=== PATIENT | female | born 1980 | race Caucasian/White ===

== ENCOUNTER 2017-10-06 12:14 | Inpatient (IN) | payer OTHER ==
[2017-10-06 14:53] VITALS: BMI 31.9
--- NOTE | 2017-10-06 15:26 | HP ---
CIWA Score - CIWA Score Nausea/Vomitin Muscle Tremors: 3 Anxiety: 3 Agitation: 3 Paroxysmal Sweats: 2 Orientation: 0-Oriented Tacttile Disturbances: 2-Mild Itch/Numbness/Burn Auditory Disturbances: 2-Mild Harshness/Frighten Visual Disturbances: 2-Mild Sensitivity Headache: 2-Mild CIWA-Ar Total Score: 22 Admission ROS BHS - HPI Chief Complaint: i need help to stop using xanax,klonopin,heroin,seeking detox,withdrawal symptom ,mmtp 80 mgs/day,last medicated today ptsd with depression no significant period of sobriety nicotine dependence Allergies/Adverse Reactions: Allergies Allergy/AdvReac Type Severity Reaction Status Date / Time No Known Allergies Allergy Verified 10/06/17 15:13 History of Present Illness: this 37 years old female with xanax,klonopin dependence,heroin dependence, seeking detox,mmtp 80 mgs/day,last medicated today seeking detox as mentioned - Ebola screening Have you traveled outside of the country in the last 21 days: No Have you had contact with anyone from an Ebola affected area: No Have you been sick,other than usual withdrawal symptoms: No Do you have a fever: No - Review of Systems Constitutional: Loss of Appetite, Malaise, Night Sweats, Changes in sleep, Weakness EENT: reports: Tearing, Nose Congestion Respiratory: reports: No Symptoms reported Cardiac: reports: No Symptoms Reported GI: reports: Diarrhea, Nausea, Vomiting, Abdominal cramping : reports: No Symptoms Reported Musculoskeletal: reports: Back Pain, Joint Pain, Muscle Pain Neuro: reports: Headache, Tremors Endocrine: reports: No Symptoms Reported Hematology: reports: No Symptoms Reported Psychiatric: reports: No Sypmtoms Reported, Judgement Intact, Mood/Affect Appropiate, Anxious, Depressed Other Systems: Reviewed and Negative Patient History - Patient Medical History Hx Anemia: No Hx Asthma: No Hx Chronic Obstructive Pulmonary Disease (COPD): No Hx Cancer: No Hx Cardiac Disorders: No Hx Congestive Heart Failure: No Hx Hypertension: No Hx Hypercholesterolemia: No Hx Pacemaker: No HX Cerebrovascular Accident: No Hx Seizures: No Hx Dementia: No Hx Diabetes: No Hx Gastrointestinal Disorders: No Hx Liver Disease: No Hx Genitourinary Disorders: No Hx Sexually Transmitted Disorders: No Hx Renal Disease (ESRD): No Hx Thyroid Disease: No Hx Human Immunodeficiency Virus (HIV): No (last 2017 negative) Hx Hepatitis C: No Hx Depression: Yes (anxiety and depression) Hx Suicide Attempt: Yes (overdose) Hx Bipolar Disorder: No Hx Schizophrenia: No Other Medical History: no suicidal,no homicidal - Patient Surgical History Past Surgical History: No Hx Neurologic Surgery: No Hx Cataract Extraction: No Hx Cardiac Surgery: No Hx Lung Surgery: No Hx Breast Surgery: No Hx Breast Biopsy: No Hx Abdominal Surgery: No Hx Appendectomy: No Hx Cholecystectomy: No Hx Genitourinary Surgery: No Hx Section: No Hx Orthopedic Surgery: No Hx Hysterectomy: No Anesthesia Reaction: No - PPD History Previous Implant?: Yes Documented Results: Negative w/o proof Implanted On Prior R Admission?: Yes Date: 02/12/14 Results: 0 mm PPD to be Administered?: Yes - Reproductive History Patient is a Female of Child Bearing Age (11 -55 yrs old): Yes Last Menstrual Period: 07/30/17 Patient : No - Smoking Cessation Smoking history: Smoker current status UNK Have you smoked in the past 12 months: No Aproximately how many cigarettes per day: 0 Cigars Per Day: 0 Hx Chewing Tobacco Use: No Initiated information on smoking cessation: Yes 'Breaking Loose' booklet given: 10/06/17 - Substance & Tx. History Hx Alcohol Use: No Hx Substance Use: Yes Substance Use Type: Cocaine, Heroin, Tranquilizers - Substances Abused Alprazolam (Xanax) Route: Oral Frequency: Daily Amount used: 4-6MG Age of first use: 18 Date of Last Use: 10/04/17 Heroin Route: Inhalation Frequency: Daily Amount used: 20 BAGS Age of first use: 32 Date of Last Use: 10/06/17 Cocaine Route: Inhalation Frequency: 1-3 times last 30 days Amount used: $20 Age of first use: 18 Date of Last Use: 10/03/17 Family Disease History - Family Disease History Family Disease History: Other: Father (dsa), Mother (dsa) Admission Physical Exam BHS - Vital Signs Vital Signs: Vital Signs - 24 hr 10/06/17 14:51 Temperature 96 F L Pulse Rate 94 H Respiratory 20 Rate Blood Pressure 123/81 - Physical General Appearance: Yes: Moderate Distress, Tremorous, Irritable, Sweating, Anxious HEENTM: Yes: Normal ENT Inspection, EDU, Pharynx Normal Respiratory: Yes: Lungs Clear, Normal Breath Sounds, No Respiratory Distress Neck: Yes: Within Normal Limits, Supple, Trachea in good position Breast: Yes: Breast Exam Deferred Cardiology: Yes: Within Normal Limits, Regular Rhythm, Regular Rate, S1, S2 Abdominal: Yes: Within Normal Limits, Normal Bowel Sounds, Non Tender, Soft Genitourinary: Yes: Within Normal Limits Back: Yes: Muscle Spasm Musculoskeletal: Yes: full range of Motion, Back pain, Muscle Pain Extremities: Yes: Tremors Neurological: Yes: Within Normal Limits, central supply nurse II-XII NML intact, Alert, Motor Strength 5/5 Integumentary: Yes: Dry, Other (abrasion of upper back) Lymphatic: Yes: Within Normal Limits - Diagnostic (1) Uncomplicated sedative, hypnotic or anxiolytic withdrawal Current Visit: Yes Status: Acute (2) Cocaine dependence, uncomplicated Current Visit: No Status: Acute (3) Nicotine dependence Current Visit: No Status: Acute (4) Opioid dependence Current Visit: No Status: Acute (5) Insomnia secondary to depression with anxiety Current Visit: Yes Status: Acute (6) Methadone maintenance therapy patient Current Visit: Yes Status: Acute Cleared for Admission [facility] - Detox or Rehab [facility] Level of Care: Medically Managed Detox Regimen/Protocol: Valium [facility] Breath Alcohol Content Breath Alcohol Content: 0 Urine Pregancy Test - Result Urine Test Results: Negative- NO Line Present Urine Drug Screen - Results Drug Screen Negative: No Urine Drug Screen Results: OPI-Opiates, BZO-Benzodiazepines, MTD-Methadone, OXY- Oxycodone
[2017-10-06] MEDS ORDERED: ACETAMINOPHEN 325 MG TABLET (FP) PO PRN (15:43)
[2017-10-06] MEDS ORDERED: guaiFENesin/D-METHORPHAN HB 10 ML UNIT-DOSE CUPS PO PRN (15:43)
[2017-10-06] MEDS ORDERED: MAGNESIUM HYDROX 2400MG/30ML ORAL SUSPENSION 30 ML CUP PO PRN (15:43)
[2017-10-06] MEDS ORDERED: hydrOXYzine PAMOATE 50 MG CAPSULE (FP) PO PRN (15:43)
[2017-10-06] MEDS ORDERED: MAG HYDROX/AL HYDROX/SIMETH 30 ML UNIT-DOSE CUP PO PRN (15:43)
[2017-10-06] MEDS ORDERED: P-EPHED 60MG/TRIPROLIDI 2.5MG TABLET PO PRN (15:43)
[2017-10-06] MEDS ORDERED: MAGNESIUM CITRATE 300 ML BOTTLE PO PRN (15:43)
[2017-10-06] MEDS ORDERED: MENTHOL/PHENOL 1 EACH UD MM PRN (15:43)
[2017-10-06] MEDS ORDERED: LOPERAMIDE HCL 2 MG CAPSULE PO PRN (15:43)
[2017-10-06] MEDS ORDERED: diazePAM 5 MG TABLET PO ONE (16:45)
[2017-10-06] MEDS: diazePAM 5 MG TABLET PO SCH (22:34)
[2017-10-06] MEDS: THIAMINE HCL 100 MG TABLET (FP) PO SCH (22:34)
[2017-10-06 23:59] LABS: URINE APPEARANCE SLCLOUDY; URINE BILIRUBIN NEGATIVE (NEGATIVE); URINE BLOOD NEGATIVE (NEGATIVE); URINE COLOR LTYELLOW; URINE GLUCOSE (UA) NEGATIVE (NEGATIVE); URINE KETONE NEGATIVE (NEGATIVE); URINE NITRITE NEGATIVE (NEGATIVE); URINE PROTEIN NEGATIVE (NEGATIVE); URINE UROBILINOGEN NEGATIVE mg/dL (0.2-1.0)
[2017-10-07] LABS: URINE LEUK ESTERASE 3+ (NEGATIVE)
[2017-10-07 00:01] LABS: EPI CELLS FEW /HPF (FEW); URINE BACTERIA FEW /hpf (NONE SEEN); URINE MUCUS RARE; YEAST FEW
[2017-10-07] MEDS: diazePAM 5 MG TABLET PO SCH ×3 (05:28→22:14)
--- NOTE | 2017-10-07 09:12 | PN ---
S CIWA - CIWA Score Nausea/Vomitin-Mild Nausea/No Vomiting Muscle Tremors: 5 Anxiety: 4-Mod. Anxious/Guarded Agitation: 4-Moderately Restless Paroxysmal Sweats: 1-Minimal Palms Moist Orientation: 0-Oriented Tacttile Disturbances: 1-Very Mild Itch/Numbness Auditory Disturbances: 0-None Visual Disturbances: 0-None Headache: 2-Mild CIWA-Ar Total Score: 18 BHS Progress Note (SOAP) Subjective: SWEAT TREMOR ANXIETY RESTLESSNESS IRRITABLE GI DISTRESS Objective: 10/07/17 09:09 Vital Signs Temperature 98.2 F 10/07/17 06:29 Pulse Rate 67 10/07/17 06:29 Respiratory Rate 18 10/07/17 06:29 Blood Pressure 115/66 10/07/17 06:29 O2 Sat by Pulse Oximetry (%) Laboratory Last Values Urine Color Ltyellow 10/06/17 23:40 Urine Appearance Slcloudy 10/06/17 23:40 Urine pH 5.0 (5.0-8.0) 10/06/17 23:40 Ur Specific [place] 1.012 (1.001-1.035) 10/06/17 23:40 Urine Protein Negative (NEGATIVE) 10/06/17 23:40 Urine Glucose (UA) Negative (NEGATIVE) 10/06/17 23:40 Urine Ketones Negative (NEGATIVE) 10/06/17 23:40 Urine Blood Negative (NEGATIVE) 10/06/17 23:40 Urine Nitrite Negative (NEGATIVE) 10/06/17 23:40 Urine Bilirubin Negative (NEGATIVE) 10/06/17 23:40 Urine Urobilinogen Negative mg/dL (0.2-1.0) 10/06/17 23:40 Ur Leukocyte Esterase 3+ (NEGATIVE) H 10/06/17 23:40 Urine WBC (Auto) 5 /hpf (3-5) 10/06/17 23:40 Urine RBC (Auto) 2 /hpf (0-3) 10/06/17 23:40 Ur Epithelial Cells Few /HPF (FEW) 10/06/17 23:40 Urine Bacteria Few /hpf (NONE SEEN) 10/06/17 23:40 Urine Mucus Rare 10/06/17 23:40 Urine Yeast Few 10/06/17 23:40 LAB NOTED Assessment: 10/07/17 09:45 WITHDRAWAL SX MUSCLE CRAMP Plan: CONTINUE DETOX ROBAXIN 500 MG PO QID
[2017-10-07 09:52] LABS: HEMATOCRIT 37.9 % (32.4-45.2); HEMOGLOBIN 12.4 GM/dL (10.7-15.3); MCH 28.3 pg (25.7-33.7); MCHC 32.6 g/dl (32.0-36.0); MEAN CELL VOLUME 86.8 fl (80-96); MEAN PLT VOLUME 8.3 fl (7.5-11.1); PLATELET COUNT 288 K/MM3 (134-434); RBC 4.37 M/mm3 (3.60-5.2); RDW 14.7 % (11.6-15.6); WHITE BLOOD COUNT 7.3 K/mm3 (4.0-10.0)
[2017-10-07 09:54] LABS: CHLORIDE 103 mmol/L (98-107); POTASSIUM 3.7 mmol/L (3.5-5.1); SODIUM 138 mmol/L (136-145)
[2017-10-07] MEDS ORDERED: METHADONE HCL 40 MG DISPERSABLE TABLET PO ONE (10:00)
[2017-10-07 10:16] LABS: ALBUMIN 3.5 g/dl (3.4-5.0); ALK PHOS 58 U/L (45-117); ANION GAP 6 (8-16); BILIRUBIN,TOTAL 0.6 mg/dL (0.2-1.0); BLOOD UREA NITROGEN 11 mg/dL (7-18); CALCIUM 8.6 mg/dL (8.5-10.1); CO2 29 mmol/L (21-32); CREATININE 0.8 mg/dL (0.55-1.02); GLUCOSE,RANDOM 84 mg/dL (74-106); SGOT/AST 9 U/L (15-37); SGPT/ALT 14 U/L (12-78); TOT PROT 6.6 g/dl (6.4-8.2)
[2017-10-07] MEDS: PRENATAL VITAMINS W/ FOLIC ACID TABLET (FP) PO SCH (10:37)
[2017-10-07] MEDS: diazePAM 5 MG TABLET PO PRN ×2 (10:37→17:30)
[2017-10-07] MEDS: METHOCARBAMOL 500 MG TABLET PO SCH ×4 (10:39→22:14)
[2017-10-07] MEDS ORDERED: FLU VACCINE QUAD 60 MCG/0.5 ML (MDV 17-18) IM ONE (12:00)
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
[2017-10-07] MEDS: NICOTINE POLACRILEX 2 MG GUM BC PRN (13:24)
--- NOTE | 2017-10-07 13:34 | EKG ---
Test Reason : Blood Pressure : / mmHG Vent. Rate : 069 BPM Atrial Rate : 069 BPM P-R Int : 140 ms QRS Dur : 082 ms QT Int : 406 ms P-R-T Axes : 029 045 027 degrees QTc Int : 435 ms NORMAL SINUS RHYTHM WITH SINUS ARRHYTHMIA NORMAL ECG NO PREVIOUS ECGS AVAILABLE Confirmed by MD Prateek, ([id number]) on 10/07/2017 1:34:32 PM Referred By: Confirmed By:Daniel Chandra MD
--- NOTE | 2017-10-07 15:09 | EKG ---
Test Reason : Blood Pressure : / mmHG Vent. Rate : 062 BPM Atrial Rate : 062 BPM P-R Int : 128 ms QRS Dur : 084 ms QT Int : 396 ms P-R-T Axes : 004 057 004 degrees QTc Int : 401 ms NORMAL SINUS RHYTHM NONSPECIFIC T WAVE ABNORMALITY ABNORMAL ECG WHEN COMPARED WITH ECG OF 06-OCT-2017 20:02, NONSPECIFIC T WAVE ABNORMALITY NOW EVIDENT IN ANTEROLATERAL LEADS Confirmed by MD Prateek, ([id number]) on 10/07/2017 3:08:45 PM Referred By: Confirmed By:Daniel Chandra MD
[2017-10-07] MEDS: THIAMINE HCL 100 MG TABLET (FP) PO SCH (22:14)
[2017-10-07] MEDS: ZOLPIDEM TARTRATE 10 MG TABLET (PARK CARE ONLY) PO PRN (22:14)
[2017-10-08] MEDS: IBUPROFEN 400 MG TABLET (FP) PO PRN ×3 (01:53→23:37)
[2017-10-08] MEDS: diazePAM 5 MG TABLET PO PRN ×3 (01:53→17:41)
[2017-10-08] MEDS: METHADONE HCL 40 MG DISPERSABLE TABLET PO SCH (05:13)
[2017-10-08] MEDS ORDERED: METHADONE HCL 10 MG TABLET PO SCH (06:00)
--- NOTE | 2017-10-08 09:26 | PN ---
S CIWA - CIWA Score Nausea/Vomitin-No Nausea/No Vomiting Muscle Tremors: 4-Moderate,w/Arms Extend Anxiety: 4-Mod. Anxious/Guarded Agitation: 4-Moderately Restless Paroxysmal Sweats: 1-Minimal Palms Moist Orientation: 0-Oriented Tacttile Disturbances: 1-Very Mild Itch/Numbness Auditory Disturbances: 0-None Visual Disturbances: 0-None Headache: 1-Very Mild CIWA-Ar Total Score: 15 BHS Progress Note (SOAP) Subjective: SWEAT TREMOR ANXIETY GI UPSET HEADACHE Objective: 10/08/17 09:25 Vital Signs Temperature 98.1 F 10/08/17 06:30 Pulse Rate 54 L 10/08/17 06:30 Respiratory Rate 18 10/08/17 06:30 Blood Pressure 125/60 10/08/17 06:30 O2 Sat by Pulse Oximetry (%) Laboratory Last Values WBC 7.3 K/mm3 (4.0-10.0) D 10/07/17 07:30 RBC 4.37 M/mm3 (3.60-5.2) 10/07/17 07:30 Hgb 12.4 GM/dL (10.7-15.3) 10/07/17 07:30 Hct 37.9 % (32.4-45.2) 10/07/17 07:30 MCV 86.8 fl (80-96) 10/07/17 07:30 MCH 28.3 pg (25.7-33.7) 10/07/17 07:30 MCHC 32.6 g/dl (32.0-36.0) 10/07/17 07:30 RDW 14.7 % (11.6-15.6) D 10/07/17 07:30 Plt Count 288 K/MM3 (134-434) 10/07/17 07:30 MPV 8.3 fl (7.5-11.1) 10/07/17 07:30 Sodium 138 mmol/L (136-145) 10/07/17 07:30 Potassium 3.7 mmol/L (3.5-5.1) 10/07/17 07:30 Chloride 103 mmol/L (98-107) 10/07/17 07:30 Carbon Dioxide 29 mmol/L (21-32) 10/07/17 07:30 Anion Gap 6 (8-16) L 10/07/17 07:30 BUN 11 mg/dL (7-18) 10/07/17 07:30 Creatinine 0.8 mg/dL (0.55-1.02) 10/07/17 07:30 Creat Clearance w eGFR > 60 (>60) 10/07/17 07:30 Random Glucose 84 mg/dL (74-106) 10/07/17 07:30 Calcium 8.6 mg/dL (8.5-10.1) 10/07/17 07:30 Total Bilirubin 0.6 mg/dL (0.2-1.0) D 10/07/17 07:30 AST 9 U/L (15-37) L 10/07/17 07:30 ALT 14 U/L (12-78) 10/07/17 07:30 Alkaline Phosphatase 58 U/L (45-117) 10/07/17 07:30 Total Protein 6.6 g/dl (6.4-8.2) 10/07/17 07:30 Albumin 3.5 g/dl (3.4-5.0) 10/07/17 07:30 Urine Color Ltyellow 10/06/17 23:40 Urine Appearance Slcloudy 10/06/17 23:40 Urine pH 5.0 (5.0-8.0) 10/06/17 23:40 Ur Specific [place] 1.012 (1.001-1.035) 10/06/17 23:40 Urine Protein Negative (NEGATIVE) 10/06/17 23:40 Urine Glucose (UA) Negative (NEGATIVE) 10/06/17 23:40 Urine Ketones Negative (NEGATIVE) 10/06/17 23:40 Urine Blood Negative (NEGATIVE) 10/06/17 23:40 Urine Nitrite Negative (NEGATIVE) 10/06/17 23:40 Urine Bilirubin Negative (NEGATIVE) 10/06/17 23:40 Urine Urobilinogen Negative mg/dL (0.2-1.0) 10/06/17 23:40 Ur Leukocyte Esterase 3+ (NEGATIVE) H 10/06/17 23:40 Urine WBC (Auto) 5 /hpf (3-5) 10/06/17 23:40 Urine RBC (Auto) 2 /hpf (0-3) 10/06/17 23:40 Ur Epithelial Cells Few /HPF (FEW) 10/06/17 23:40 Urine Bacteria Few /hpf (NONE SEEN) 10/06/17 23:40 Urine Mucus Rare 10/06/17 23:40 Urine Yeast Few 10/06/17 23:40 RPR Titer Nonreactive (NONREACTIVE) 10/07/17 07:30 LAB NOTED Assessment: 10/08/17 09:25 WITHDRAWAL SX Plan: CONTINUE DETOX
[2017-10-08] MEDS: diazePAM 5 MG TABLET PO SCH ×2 (10:18→22:21)
[2017-10-08] MEDS: METHOCARBAMOL 500 MG TABLET PO SCH ×4 (10:18→22:21)
[2017-10-08] MEDS: PRENATAL VITAMINS W/ FOLIC ACID TABLET (FP) PO SCH (10:18)
[2017-10-08] MEDS: NICOTINE POLACRILEX 2 MG GUM BC PRN (10:18)
[2017-10-08] MEDS: LIDOCAINE VISCOUS 2% ORAL/TOP 20 ML UNIT-DOSE CUP MM PRN ×2 (13:09→23:36)
[2017-10-08] MEDS ORDERED: SENNOSIDES 8.6MG TABLET (FP) PO SCH (22:00)
[2017-10-08] MEDS: THIAMINE HCL 100 MG TABLET (FP) PO SCH (22:20)
[2017-10-08] MEDS: ZOLPIDEM TARTRATE 10 MG TABLET (PARK CARE ONLY) PO PRN (22:20)
[2017-10-09] MEDS: METHADONE HCL 40 MG DISPERSABLE TABLET PO SCH (05:31)
[2017-10-09] MEDS: diazePAM 5 MG TABLET PO PRN (07:21)
[2017-10-09] MEDS: IBUPROFEN 400 MG TABLET (FP) PO PRN (07:24)
[2017-10-09 10:01] VITALS: BP 117/70; PULSE 82; TEMP 97.3
[2017-10-09] MEDS: METHOCARBAMOL 500 MG TABLET PO SCH (10:31)
[2017-10-09] MEDS: PRENATAL VITAMINS W/ FOLIC ACID TABLET (FP) PO SCH (10:31)
[2017-10-09] MEDS: diazePAM 5 MG TABLET PO SCH (10:31)
--- NOTE | 2017-10-09 10:51 | PN ---
[facility] Progress Note (SOAP) Subjective: alert oriented x 3 no acute distress calm tolerates food and fluid well reports step on glass few weeks ago, right heel discomfort while walking patient is unable to locate the discomfort area on right heel Objective: 10/09/17 10:49 Vital Signs Temperature 97.3 F L 10/09/17 10:00 Pulse Rate 82 10/09/17 10:00 Respiratory Rate 18 10/09/17 10:00 Blood Pressure 117/70 10/09/17 10:00 O2 Sat by Pulse Oximetry (%) Laboratory Last Values WBC 7.3 K/mm3 (4.0-10.0) D 10/07/17 07:30 RBC 4.37 M/mm3 (3.60-5.2) 10/07/17 07:30 Hgb 12.4 GM/dL (10.7-15.3) 10/07/17 07:30 Hct 37.9 % (32.4-45.2) 10/07/17 07:30 MCV 86.8 fl (80-96) 10/07/17 07:30 MCH 28.3 pg (25.7-33.7) 10/07/17 07:30 MCHC 32.6 g/dl (32.0-36.0) 10/07/17 07:30 RDW 14.7 % (11.6-15.6) D 10/07/17 07:30 Plt Count 288 K/MM3 (134-434) 10/07/17 07:30 MPV 8.3 fl (7.5-11.1) 10/07/17 07:30 Sodium 138 mmol/L (136-145) 10/07/17 07:30 Potassium 3.7 mmol/L (3.5-5.1) 10/07/17 07:30 Chloride 103 mmol/L (98-107) 10/07/17 07:30 Carbon Dioxide 29 mmol/L (21-32) 10/07/17 07:30 Anion Gap 6 (8-16) L 10/07/17 07:30 BUN 11 mg/dL (7-18) 10/07/17 07:30 Creatinine 0.8 mg/dL (0.55-1.02) 10/07/17 07:30 Creat Clearance w eGFR > 60 (>60) 10/07/17 07:30 Random Glucose 84 mg/dL (74-106) 10/07/17 07:30 Calcium 8.6 mg/dL (8.5-10.1) 10/07/17 07:30 Total Bilirubin 0.6 mg/dL (0.2-1.0) D 10/07/17 07:30 AST 9 U/L (15-37) L 10/07/17 07:30 ALT 14 U/L (12-78) 10/07/17 07:30 Alkaline Phosphatase 58 U/L (45-117) 10/07/17 07:30 Total Protein 6.6 g/dl (6.4-8.2) 10/07/17 07:30 Albumin 3.5 g/dl (3.4-5.0) 10/07/17 07:30 Urine Color Ltyellow 10/06/17 23:40 Urine Appearance Slcloudy 10/06/17 23:40 Urine pH 5.0 (5.0-8.0) 10/06/17 23:40 Ur Specific [place] 1.012 (1.001-1.035) 10/06/17 23:40 Urine Protein Negative (NEGATIVE) 10/06/17 23:40 Urine Glucose (UA) Negative (NEGATIVE) 10/06/17 23:40 Urine Ketones Negative (NEGATIVE) 10/06/17 23:40 Urine Blood Negative (NEGATIVE) 10/06/17 23:40 Urine Nitrite Negative (NEGATIVE) 10/06/17 23:40 Urine Bilirubin Negative (NEGATIVE) 10/06/17 23:40 Urine Urobilinogen Negative mg/dL (0.2-1.0) 10/06/17 23:40 Ur Leukocyte Esterase 3+ (NEGATIVE) H 10/06/17 23:40 Urine WBC (Auto) 5 /hpf (3-5) 10/06/17 23:40 Urine RBC (Auto) 2 /hpf (0-3) 10/06/17 23:40 Ur Epithelial Cells Few /HPF (FEW) 10/06/17 23:40 Urine Bacteria Few /hpf (NONE SEEN) 10/06/17 23:40 Urine Mucus Rare 10/06/17 23:40 Urine Yeast Few 10/06/17 23:40 RPR Titer Nonreactive (NONREACTIVE) 10/07/17 07:30 lab noted skin intact warm to touch none tender on palpation ankle full range of motion Assessment: 10/09/17 10:50 mild withdrawal sx Plan: medically supervised detox patient stated that she is not taking medication at home negative finding on right heel "step on glass"
--- NOTE | 2017-10-09 11:44 | DS ---
[facility] Detox Discharge Summary Admission Date: 10/06/17 Discharge Date: 10/09/17 - History Present History: Alcohol Dependence Additional Comments: patient reports that she is ready to go to rehab today, - Physical Exam Results Vital Signs: Vital Signs Temperature 97.3 F L 10/09/17 10:00 Pulse Rate 82 10/09/17 10:00 Respiratory Rate 18 10/09/17 10:00 Blood Pressure 117/70 10/09/17 10:00 O2 Sat by Pulse Oximetry (%) Pertinent Admission Physical Exam Findings: withdrawal sx Laboratory Last Values WBC 7.3 K/mm3 (4.0-10.0) D 10/07/17 07:30 RBC 4.37 M/mm3 (3.60-5.2) 10/07/17 07:30 Hgb 12.4 GM/dL (10.7-15.3) 10/07/17 07:30 Hct 37.9 % (32.4-45.2) 10/07/17 07:30 MCV 86.8 fl (80-96) 10/07/17 07:30 MCH 28.3 pg (25.7-33.7) 10/07/17 07:30 MCHC 32.6 g/dl (32.0-36.0) 10/07/17 07:30 RDW 14.7 % (11.6-15.6) D 10/07/17 07:30 Plt Count 288 K/MM3 (134-434) 10/07/17 07:30 MPV 8.3 fl (7.5-11.1) 10/07/17 07:30 Sodium 138 mmol/L (136-145) 10/07/17 07:30 Potassium 3.7 mmol/L (3.5-5.1) 10/07/17 07:30 Chloride 103 mmol/L (98-107) 10/07/17 07:30 Carbon Dioxide 29 mmol/L (21-32) 10/07/17 07:30 Anion Gap 6 (8-16) L 10/07/17 07:30 BUN 11 mg/dL (7-18) 10/07/17 07:30 Creatinine 0.8 mg/dL (0.55-1.02) 10/07/17 07:30 Creat Clearance w eGFR > 60 (>60) 10/07/17 07:30 Random Glucose 84 mg/dL (74-106) 10/07/17 07:30 Calcium 8.6 mg/dL (8.5-10.1) 10/07/17 07:30 Total Bilirubin 0.6 mg/dL (0.2-1.0) D 10/07/17 07:30 AST 9 U/L (15-37) L 10/07/17 07:30 ALT 14 U/L (12-78) 10/07/17 07:30 Alkaline Phosphatase 58 U/L (45-117) 10/07/17 07:30 Total Protein 6.6 g/dl (6.4-8.2) 10/07/17 07:30 Albumin 3.5 g/dl (3.4-5.0) 10/07/17 07:30 Urine Color Ltyellow 10/06/17 23:40 Urine Appearance Slcloudy 10/06/17 23:40 Urine pH 5.0 (5.0-8.0) 10/06/17 23:40 Ur Specific [place] 1.012 (1.001-1.035) 10/06/17 23:40 Urine Protein Negative (NEGATIVE) 10/06/17 23:40 Urine Glucose (UA) Negative (NEGATIVE) 10/06/17 23:40 Urine Ketones Negative (NEGATIVE) 10/06/17 23:40 Urine Blood Negative (NEGATIVE) 10/06/17 23:40 Urine Nitrite Negative (NEGATIVE) 10/06/17 23:40 Urine Bilirubin Negative (NEGATIVE) 10/06/17 23:40 Urine Urobilinogen Negative mg/dL (0.2-1.0) 10/06/17 23:40 Ur Leukocyte Esterase 3+ (NEGATIVE) H 10/06/17 23:40 Urine WBC (Auto) 5 /hpf (3-5) 10/06/17 23:40 Urine RBC (Auto) 2 /hpf (0-3) 10/06/17 23:40 Ur Epithelial Cells Few /HPF (FEW) 10/06/17 23:40 Urine Bacteria Few /hpf (NONE SEEN) 10/06/17 23:40 Urine Mucus Rare 10/06/17 23:40 Urine Yeast Few 10/06/17 23:40 RPR Titer Nonreactive (NONREACTIVE) 10/07/17 07:30 lab noted - Treatment Hospital Course: Detox Protocol Followed, Detoxed Safely, Responded well, Discharged Condition Good, Rehab Referral Accepted Patient has Accepted [facility] - Medication Discharge Medications: Ambulatory Orders Methadone [Dolophine -] 80 mg PO DAILY 10/09/17 - Diagnosis (1) Methadone maintenance therapy patient Current Visit: Yes Status: Chronic (2) Alcohol dependence with uncomplicated withdrawal Current Visit: Yes Status: Acute - AMA Did Patient Leave Against Medical Advice: No
[2017-10-10] MEDS ORDERED: diazePAM 5 MG TABLET PO SCH (10:00)
[2017-10-10] MEDS ORDERED: METHADONE HCL 40 MG DISPERSABLE TABLET PO SCH (10:00)
== END 2017-10-09 11:55 | disposition other institution (70) | DRG 773 ==
LOC: YASAS 12:14 → Y6N 16:19
PROVIDERS: ADMIT Internal Medicine; ATTEND Internal Medicine
PROC: HZ2ZZZZ Detoxification Services for Substance Abuse Treatment (ICD-10-PCS; principal; 2017-10-06)
DX: F11.20 Opioid dependence, uncomplicated (principal); F14.20 Cocaine dependence, uncomplicated; F17.210 Nicotine dependence, cigarettes, uncomplicated; F19.282 Other psychoactive substance dependence with psychoactive substance-induced sleep disorder; F51.05 Insomnia due to other mental disorder; F43.10 Post-traumatic stress disorder, unspecified; R25.2 Cramp and spasm; Z91.5 Personal history of self-harm
CPT/HCPCS: 36415; 80053; 81003; 81015; 85027; 86593; 93005; 93010

== ENCOUNTER 2017-10-09 12:40 | Inpatient (IN) | payer OTHER ==
[2017-10-09] MEDS ORDERED: MENTHOL/PHENOL 1 EACH UD MM PRN ×2 (13:35→13:39)
[2017-10-09] MEDS ORDERED: LOPERAMIDE HCL 2 MG CAPSULE PO PRN ×2 (13:35→13:39)
[2017-10-09] MEDS ORDERED: P-EPHED 60MG/TRIPROLIDI 2.5MG TABLET PO PRN ×2 (13:35→13:39)
[2017-10-09] MEDS ORDERED: ACETAMINOPHEN 325 MG TABLET (FP) PO PRN ×2 (13:35→13:39)
[2017-10-09] MEDS ORDERED: guaiFENesin/D-METHORPHAN HB 10 ML UNIT-DOSE CUPS PO PRN ×2 (13:35→13:39)
[2017-10-09] MEDS ORDERED: NICOTINE POLACRILEX 4 MG GUM BUC PRN (13:35)
[2017-10-09] MEDS ORDERED: MAG HYDROX/AL HYDROX/SIMETH 30 ML UNIT-DOSE CUP PO PRN ×2 (13:35→13:39)
[2017-10-09] MEDS ORDERED: NICOTINE 21 MG/24 HOURS TOPICAL PATCH TD PRN (13:35)
[2017-10-09] MEDS ORDERED: MAGNESIUM HYDROX 2400MG/30ML ORAL SUSPENSION 30 ML CUP PO PRN ×2 (13:35→13:39)
[2017-10-09] MEDS ORDERED: IBUPROFEN 400 MG TABLET (FP) PO PRN (13:35)
[2017-10-09] MEDS ORDERED: MAGNESIUM CITRATE 300 ML BOTTLE PO PRN ×2 (13:35→13:39)
--- NOTE | 2017-10-09 13:35 | HP ---
[facility] Rehab Assess/Revision - Admission History Admitted to Rehab from: [facility] (transferred from detox to rehab admission as per protocol) Date of Admission to Rehab: 10/09/17 - Findings Detox History & Physical reviewed: Yes Concur with findings: Yes Inpatient Rehab Admission - Initial Determination Are CD services needed?: Yes Free of communicable disease: Yes Not in need of hospitalization: Yes - Rehab Admission Criteria Previous failed treatment: Yes Poor recovery environment: Yes Comorbidities: Yes Lacks judgement: No Patient is meeting Inpatient Rehab admission criteria:: Yes
[2017-10-09] MEDS ORDERED: SENNOSIDES 8.6MG TABLET (FP) PO PRN (13:47)
[2017-10-09] MEDS: METHOCARBAMOL 500 MG TABLET PO SCH ×3 (15:31→21:59)
--- NOTE | 2017-10-09 16:17 | PN ---
[facility] Progress Note Note: Psychiatric nurse practitioner note: Recieved call from FELICIANO Arellano concerning patient's request for anxiety and sleep medication. Spoke to patient briefly about ordering vistaril 50mg for anxiety and Belsomra for insomnia. Pt. requesting both medications. Benefits and side effects discussed. Verbal consent given. Will order Vistaril 50mg q4h and Belsomra 10mg qhs prn for insomnia.
[2017-10-09] MEDS: hydrOXYzine PAMOATE 50 MG CAPSULE (FP) PO PRN (17:52)
[2017-10-09] MEDS: THIAMINE HCL 100 MG TABLET (FP) PO SCH (21:59)
[2017-10-09] MEDS ORDERED: THIAMINE HCL 100 MG TABLET (FP) PO SCH (22:00)
[2017-10-09] MEDS ORDERED: LIDOCAINE PATCH REMOVAL MC SCH (22:00)
[2017-10-09] MEDS: SUVOREXANT 10 MG TABLET PO PRN (22:01)
[2017-10-10] MEDS: METHADONE HCL 40 MG DISPERSABLE TABLET PO SCH (06:40)
[2017-10-10] MEDS ORDERED: PRENATAL VITAMINS W/ FOLIC ACID TABLET (FP) PO SCH (10:00)
[2017-10-10] MEDS ORDERED: LIDOCAINE 5% TOPICAL PATCH TP SCH (10:00)
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
[2017-10-10] MEDS: METHOCARBAMOL 500 MG TABLET PO SCH ×4 (10:46→21:21)
[2017-10-10] MEDS: PRENATAL VITAMINS W/ FOLIC ACID TABLET (FP) PO SCH (10:46)
[2017-10-10] MEDS: ARIPiprazole 2 MG TABLET PO SCH (11:00)
[2017-10-10] MEDS: GABAPENTIN 100 MG CAPSULE (FP) PO SCH ×2 (13:18→21:21)
[2017-10-10] MEDS: THIAMINE HCL 100 MG TABLET (FP) PO SCH (21:21)
[2017-10-10] MEDS: SUVOREXANT 10 MG TABLET PO PRN (21:24)
[2017-10-11] MEDS: hydrOXYzine PAMOATE 50 MG CAPSULE (FP) PO PRN ×3 (01:20→21:48)
[2017-10-11] MEDS: IBUPROFEN 400 MG TABLET (FP) PO PRN (01:20)
[2017-10-11] MEDS: METHADONE HCL 40 MG DISPERSABLE TABLET PO SCH (06:38)
[2017-10-11] MEDS: GABAPENTIN 100 MG CAPSULE (FP) PO SCH ×3 (06:38→21:45)
[2017-10-11] MEDS: METHOCARBAMOL 500 MG TABLET PO SCH ×4 (10:31→21:45)
[2017-10-11] MEDS: ARIPiprazole 2 MG TABLET PO SCH (10:31)
[2017-10-11] MEDS: PRENATAL VITAMINS W/ FOLIC ACID TABLET (FP) PO SCH (10:31)
[2017-10-11] MEDS: LIDOCAINE VISCOUS 2% ORAL/TOP 100 ML BOTTLE MM PRN (10:35)
[2017-10-11] MEDS: NICOTINE 21 MG/24 HOURS TOPICAL PATCH TD SCH (13:18)
[2017-10-11] MEDS: NICOTINE POLACRILEX 2 MG GUM BUC PRN (13:18)
[2017-10-11] MEDS: THIAMINE HCL 100 MG TABLET (FP) PO SCH (21:45)
[2017-10-11] MEDS: SUVOREXANT 10 MG TABLET PO PRN (21:46)
[2017-10-12] MEDS: METHADONE HCL 40 MG DISPERSABLE TABLET PO SCH (06:37)
[2017-10-12] MEDS: GABAPENTIN 100 MG CAPSULE (FP) PO SCH ×3 (06:37→21:38)
[2017-10-12 07:11] VITALS: TEMP 97.8
[2017-10-12] MEDS: hydrOXYzine PAMOATE 50 MG CAPSULE (FP) PO PRN ×2 (10:21→21:39)
[2017-10-12] MEDS: ARIPiprazole 2 MG TABLET PO SCH (10:21)
[2017-10-12] MEDS: PRENATAL VITAMINS W/ FOLIC ACID TABLET (FP) PO SCH (10:21)
[2017-10-12] MEDS: METHOCARBAMOL 500 MG TABLET PO SCH ×4 (10:21→21:37)
[2017-10-12] MEDS: IBUPROFEN 400 MG TABLET (FP) PO PRN (10:22)
[2017-10-12] MEDS: NICOTINE 21 MG/24 HOURS TOPICAL PATCH TD SCH (10:23)
[2017-10-12] MEDS: NICOTINE POLACRILEX 2 MG GUM BUC PRN (10:24)
[2017-10-12] MEDS: THIAMINE HCL 100 MG TABLET (FP) PO SCH (21:37)
[2017-10-12] MEDS: LIDOCAINE VISCOUS 2% ORAL/TOP 100 ML BOTTLE MM PRN (21:38)
[2017-10-12] MEDS: SUVOREXANT 10 MG TABLET PO PRN (21:38)
[2017-10-13] MEDS ORDERED: PT OWN MED DRAWER 7, Y5N ONE ×4 (03:23→16:33)
[2017-10-13] MEDS: IBUPROFEN 400 MG TABLET (FP) PO PRN ×2 (03:23→10:42)
[2017-10-13] MEDS: LIDOCAINE VISCOUS 2% ORAL/TOP 100 ML BOTTLE MM PRN ×2 (03:24→10:44)
[2017-10-13] MEDS: METHADONE HCL 40 MG DISPERSABLE TABLET PO SCH (06:48)
[2017-10-13] MEDS: GABAPENTIN 100 MG CAPSULE (FP) PO SCH ×2 (06:49→13:35)
[2017-10-13 07:25] VITALS: BP 103/63; PULSE 67
[2017-10-13] MEDS: PRENATAL VITAMINS W/ FOLIC ACID TABLET (FP) PO SCH (10:34)
[2017-10-13] MEDS: METHOCARBAMOL 500 MG TABLET PO SCH ×3 (10:34→18:30)
[2017-10-13] MEDS: ARIPiprazole 2 MG TABLET PO SCH (10:35)
[2017-10-13] MEDS: NICOTINE 21 MG/24 HOURS TOPICAL PATCH TD SCH (10:37)
[2017-10-13] MEDS ORDERED: IBUPROFEN 400 MG TABLET (FP) PO PRN (14:17)
[2017-10-13] MEDS ORDERED: AMOXICILLIN 500 MG CAPSULE (FP) PO SCH (14:45)
[2017-10-13] MEDS ORDERED: LIDOCAINE VISCOUS 2% ORAL/TOP 20 ML UNIT-DOSE CUP MM PRN (17:33)
[2017-10-13] MEDS ORDERED: BENZOCAINE 20 % GEL 9 GM TUBE MM PRN (17:56)
--- NOTE | 2017-10-13 23:57 | PN ---
[facility] Progress Note Note: Patient c/o toothache 05/20 Patient anxious, irritable, ambulating in the unit Patient AOx3 Multiple cracked, decayed and missing teeth with erythematous gum without bleed No respiratory distress present or adventitious breath sounds HR and rhythm within normal limits Amoxicillin 500mg TID Ibuprofen 800mg TID Anbesol PRN apply to the gums patient was educated extensively on oral hygiene and to follow up with dentist upon discharge Continue to monitor
== END 2017-10-13 18:35 | disposition left against medical advice (07) | DRG 770 ==
LOC: YASAS 12:40 → Y3E 12:42
PROVIDERS: ADMIT Psychiatry & Neurology Psychiatry; ATTEND Psychiatry & Neurology Psychiatry
PROC: HZ42ZZZ Group Counseling for Substance Abuse Treatment, Cognitive-Behavioral (ICD-10-PCS; principal; 2017-10-09)
DX: F11.20 Opioid dependence, uncomplicated (principal); F13.20 Sedative, hypnotic or anxiolytic dependence, uncomplicated; F10.20 Alcohol dependence, uncomplicated; F17.210 Nicotine dependence, cigarettes, uncomplicated; F90.9 Attention-deficit hyperactivity disorder, unspecified type; F43.10 Post-traumatic stress disorder, unspecified; F19.24 Other psychoactive substance dependence with psychoactive substance-induced mood disorder; K08.89 Other specified disorders of teeth and supporting structures

== ENCOUNTER 2021-11-06 11:53 | Inpatient (IN) | payer OTHER ==
[2021-11-06] MEDS ORDERED: ONDANSETRON *ODT* 4 MG TABLET SL PRN (12:29)
[2021-11-06] MEDS ORDERED: ACETAMINOPHEN 325 MG TABLET (FP) PO PRN ×2 (12:29)
[2021-11-06] MEDS ORDERED: MENTHOL/PHENOL 1 EACH UD MM PRN (12:29)
[2021-11-06] MEDS ORDERED: MAG HYDROX/AL HYDROX/SIMETH 30 ML UNIT-DOSE CUP PO PRN (12:29)
[2021-11-06] MEDS ORDERED: LOPERAMIDE HCL 2 MG CAPSULE PO PRN (12:29)
[2021-11-06] MEDS ORDERED: MAGNESIUM HYDROX 2400MG/30ML ORAL SUSPENSION 30 ML CUP PO PRN (12:29)
[2021-11-06] MEDS ORDERED: chlordiazePOXIDE HCL 25 MG CAPSULE PO PRN (12:29)
[2021-11-06] MEDS ORDERED: MAGNESIUM CITRATE 300 ML BOTTLE PO PRN (12:29)
[2021-11-06] MEDS ORDERED: BISMUTH SUBSALICYLATE 262 MG/15 ML BTL PO PRN (12:29)
[2021-11-06 12:46] VITALS: BMI 32.9
[2021-11-06] MEDS: PRENATAL VITAMINS W/ FOLIC ACID TABLET (FP) PO SCH (14:37)
[2021-11-06] MEDS: hydrOXYzine PAMOATE 25 MG CAPSULE (FP) PO SCH ×3 (14:38→22:51)
[2021-11-06] MEDS: IBUPROFEN 400 MG TABLET (FP) PO PRN (14:38)
[2021-11-06] MEDS: METHOCARBAMOL 500 MG TABLET PO PRN (14:38)
[2021-11-06] MEDS: NICOTINE 14 MG/24 HOURS TOPICAL PATCH TD SCH (14:39)
[2021-11-06] MEDS: chlordiazePOXIDE HCL 25 MG CAPSULE PO SCH ×2 (17:56→22:51)
[2021-11-06 18:09] LABS: HEMATOCRIT 33.1 % (32.4-45.2); HEMOGLOBIN 10.7 GM/dL (10.7-15.3); MCH 25.4 pg (25.7-33.7); MCHC 32.4 g/dl (32.0-36.0); MEAN CELL VOLUME 78.5 fl (80-96); PLATELET COUNT 374 10^3/uL (134-434); RBC 4.22 M/mm3 (3.60-5.2); RDW 18.2 % (11.6-15.6); WHITE BLOOD COUNT 6.9 K/mm3 (4.0-10.0)
[2021-11-06 18:11] LABS: CALCIUM 8.9 mg/dL (8.5-10.1)
[2021-11-06 18:12] LABS: ALBUMIN 3.5 g/dl (3.4-5.0); BLOOD UREA NITROGEN 11.6 mg/dL (7-18)
[2021-11-06 18:14] LABS: CREATININE 0.9 mg/dL (0.55-1.3)
[2021-11-06 18:16] LABS: TOT PROT 7.5 g/dl (6.4-8.2)
[2021-11-06 18:18] LABS: BILIRUBIN,TOTAL 0.4 mg/dL (0.2-1)
[2021-11-06] MEDS: MELATONIN 5 MG TABLETS PO SCH (22:51)
[2021-11-06] MEDS: THIAMINE HCL 100 MG TABLET (FP) PO SCH (22:51)
[2021-11-07] MEDS ORDERED: methaDONE HCL 10 MG TABLET ONE (05:02)
[2021-11-07] MEDS ORDERED: methaDONE HCL 40 MG DISPERSABLE TABLET ONE (05:03)
[2021-11-07] MEDS: chlordiazePOXIDE HCL 25 MG CAPSULE PO SCH ×4 (06:00→22:37)
[2021-11-07] MEDS ORDERED: methaDONE HCL 10 MG TABLET PO SCH (06:00)
[2021-11-07] MEDS: hydrOXYzine PAMOATE 25 MG CAPSULE (FP) PO SCH ×5 (06:01→22:37)
[2021-11-07] MEDS: NICOTINE 14 MG/24 HOURS TOPICAL PATCH TD SCH (10:50)
[2021-11-07] MEDS: NICOTINE 10 MG CARTRIDGE (INHALER) IH PRN ×2 (10:51→22:39)
[2021-11-07] MEDS: PRENATAL VITAMINS W/ FOLIC ACID TABLET (FP) PO SCH (10:52)
[2021-11-07] MEDS: METHOCARBAMOL 500 MG TABLET PO PRN (10:52)
[2021-11-07] MEDS: IBUPROFEN 400 MG TABLET (FP) PO PRN (15:03)
[2021-11-07] MEDS: GABAPENTIN 400 MG CAPSULE PO SCH ×2 (15:03→22:37)
[2021-11-07] MEDS: MELATONIN 5 MG TABLETS PO SCH (22:23)
[2021-11-07] MEDS: traZODone HCL 50 MG TABLET (FP) PO SCH (22:37)
[2021-11-07] MEDS: THIAMINE HCL 100 MG TABLET (FP) PO SCH (22:37)
[2021-11-08] MEDS ORDERED: methaDONE HCL 10 MG TABLET ONE (04:50)
[2021-11-08] MEDS ORDERED: methaDONE HCL 40 MG DISPERSABLE TABLET ONE (04:51)
[2021-11-08] MEDS: hydrOXYzine PAMOATE 25 MG CAPSULE (FP) PO SCH ×5 (05:35→22:24)
[2021-11-08] MEDS: chlordiazePOXIDE HCL 25 MG CAPSULE PO SCH ×4 (05:35→22:24)
[2021-11-08] MEDS: GABAPENTIN 400 MG CAPSULE PO SCH ×3 (05:35→22:24)
[2021-11-08] MEDS: METHOCARBAMOL 500 MG TABLET PO PRN ×2 (05:37→18:24)
[2021-11-08] MEDS: NICOTINE 10 MG CARTRIDGE (INHALER) IH PRN (05:37)
[2021-11-08 09:59] LABS: BASO % 0.5 % (0-2.0); EOS % 2.3 % (0-4.5); HEMATOCRIT 32.7 % (32.4-45.2); HEMOGLOBIN 10.8 GM/dL (10.7-15.3); LYMPH % 37.6 % (8-40); MCH 25.8 pg (25.7-33.7); MCHC 33.1 g/dl (32.0-36.0); MEAN CELL VOLUME 77.8 fl (80-96); MONO % 10.7 % (3.8-10.2); NEUT % 48.9 % (42.8-82.8); PLATELET COUNT 319 10^3/uL (134-434); RBC 4.21 M/mm3 (3.60-5.2); RDW 17.9 % (11.6-15.6); WHITE BLOOD COUNT 6.9 K/mm3 (4.0-10.0)
[2021-11-08] MEDS: PRENATAL VITAMINS W/ FOLIC ACID TABLET (FP) PO SCH (10:10)
[2021-11-08] MEDS: NICOTINE 14 MG/24 HOURS TOPICAL PATCH TD SCH (10:11)
[2021-11-08 14:08] LABS: SARS-CoV-2 NAA Not Detected (Not Detected)
[2021-11-08] MEDS: traZODone HCL 50 MG TABLET (FP) PO SCH (22:24)
[2021-11-08] MEDS: THIAMINE HCL 100 MG TABLET (FP) PO SCH (22:24)
[2021-11-08] MEDS: MELATONIN 5 MG TABLETS PO SCH (22:24)
[2021-11-09] MEDS ORDERED: chlordiazePOXIDE HCL 10 MG CAPSULE PO PRN
[2021-11-09] MEDS ORDERED: methaDONE HCL 40 MG DISPERSABLE TABLET ONE (04:47)
[2021-11-09] MEDS ORDERED: methaDONE HCL 10 MG TABLET ONE (04:47)
[2021-11-09] MEDS: GABAPENTIN 400 MG CAPSULE PO SCH ×3 (05:28→22:16)
[2021-11-09] MEDS: hydrOXYzine PAMOATE 25 MG CAPSULE (FP) PO SCH ×5 (06:13→22:16)
[2021-11-09] MEDS: chlordiazePOXIDE HCL 10 MG CAPSULE PO SCH ×4 (06:13→22:20)
[2021-11-09] MEDS: PRENATAL VITAMINS W/ FOLIC ACID TABLET (FP) PO SCH (10:11)
[2021-11-09] MEDS: NICOTINE 10 MG CARTRIDGE (INHALER) IH PRN (10:12)
[2021-11-09] MEDS: NICOTINE 14 MG/24 HOURS TOPICAL PATCH TD SCH (10:12)
[2021-11-09] MEDS: METHOCARBAMOL 500 MG TABLET PO PRN ×2 (10:15→17:51)
[2021-11-09] MEDS: IBUPROFEN 400 MG TABLET (FP) PO PRN (13:14)
[2021-11-09] MEDS: LIDOCAINE 5% TOPICAL PATCH TP SCH (15:45)
[2021-11-09] MEDS: THIAMINE HCL 100 MG TABLET (FP) PO SCH (22:16)
[2021-11-09] MEDS: MELATONIN 5 MG TABLETS PO SCH (22:16)
[2021-11-09] MEDS: traZODone HCL 50 MG TABLET (FP) PO SCH (22:16)
[2021-11-09] MEDS: LIDOCAINE PATCH REMOVAL MC SCH (22:54)
[2021-11-10] MEDS: METHOCARBAMOL 500 MG TABLET PO PRN ×2 (00:34→10:08)
[2021-11-10] MEDS ORDERED: methaDONE HCL 10 MG TABLET ONE (04:27)
[2021-11-10] MEDS ORDERED: methaDONE HCL 40 MG DISPERSABLE TABLET ONE (04:27)
[2021-11-10] MEDS: chlordiazePOXIDE HCL 10 MG CAPSULE PO SCH ×2 (07:04→18:12)
[2021-11-10] MEDS: GABAPENTIN 400 MG CAPSULE PO SCH ×3 (07:04→23:14)
[2021-11-10] MEDS: hydrOXYzine PAMOATE 25 MG CAPSULE (FP) PO SCH ×5 (07:04→23:14)
[2021-11-10] MEDS: NICOTINE 10 MG CARTRIDGE (INHALER) IH PRN ×3 (07:05→14:07)
[2021-11-10] MEDS: LIDOCAINE 5% TOPICAL PATCH TP SCH (10:08)
[2021-11-10] MEDS: NICOTINE 14 MG/24 HOURS TOPICAL PATCH TD SCH (10:09)
[2021-11-10] MEDS: PRENATAL VITAMINS W/ FOLIC ACID TABLET (FP) PO SCH (10:09)
[2021-11-10] MEDS: THIAMINE HCL 100 MG TABLET (FP) PO SCH (23:14)
[2021-11-10] MEDS: MELATONIN 5 MG TABLETS PO SCH (23:14)
[2021-11-10] MEDS: traZODone HCL 50 MG TABLET (FP) PO SCH (23:14)
[2021-11-10] MEDS: LIDOCAINE PATCH REMOVAL MC SCH (23:18)
[2021-11-11] MEDS ORDERED: methaDONE HCL 10 MG TABLET ONE (04:11)
[2021-11-11] MEDS ORDERED: methaDONE HCL 40 MG DISPERSABLE TABLET ONE (04:11)
[2021-11-11] MEDS ORDERED: chlordiazePOXIDE HCL 10 MG CAPSULE PO ONE (05:00)
[2021-11-11] MEDS: GABAPENTIN 400 MG CAPSULE PO SCH (06:19)
[2021-11-11] MEDS: hydrOXYzine PAMOATE 25 MG CAPSULE (FP) PO SCH ×2 (06:22→09:36)
[2021-11-11] MEDS: PRENATAL VITAMINS W/ FOLIC ACID TABLET (FP) PO SCH (09:36)
[2021-11-11] MEDS: METHOCARBAMOL 500 MG TABLET PO PRN (09:36)
[2021-11-11] MEDS: IBUPROFEN 400 MG TABLET (FP) PO PRN (09:36)
[2021-11-11] MEDS: NICOTINE 14 MG/24 HOURS TOPICAL PATCH TD SCH (09:37)
[2021-11-11] MEDS: NICOTINE 10 MG CARTRIDGE (INHALER) IH PRN (09:37)
[2021-11-11] MEDS: LIDOCAINE 5% TOPICAL PATCH TP SCH (10:00)
[2021-11-11 10:50] VITALS: BP 109/64; PULSE 67; TEMP 97.8
== END 2021-11-11 12:45 | disposition other institution (70) | DRG 773 ==
LOC: YASAS 11:53 → Y6N 14:06
PROVIDERS: ADMIT Allergy & Immunology; ATTEND Allergy & Immunology
PROC: HZ2ZZZZ Detoxification Services for Substance Abuse Treatment (ICD-10-PCS; principal; 2021-11-06)
DX: F10.230 Alcohol dependence with withdrawal, uncomplicated (principal); F11.20 Opioid dependence, uncomplicated; F13.230 Sedative, hypnotic or anxiolytic dependence with withdrawal, uncomplicated; F14.20 Cocaine dependence, uncomplicated; F12.20 Cannabis dependence, uncomplicated; F17.210 Nicotine dependence, cigarettes, uncomplicated; F19.280 Other psychoactive substance dependence with psychoactive substance-induced anxiety disorder; F19.282 Other psychoactive substance dependence with psychoactive substance-induced sleep disorder; F19.24 Other psychoactive substance dependence with psychoactive substance-induced mood disorder; F41.9 Anxiety disorder, unspecified; F34.1 Dysthymic disorder; F90.9 Attention-deficit hyperactivity disorder, unspecified type; D75.89 Other specified diseases of blood and blood-forming organs; N92.6 Irregular menstruation, unspecified; Z59.00 Homelessness unspecified; Z56.0 Unemployment, unspecified
CPT/HCPCS: 36415; 80053; 85025; 85027; 86780; C9803-CS; U0003; U0005

== ENCOUNTER 2021-11-11 08:30 | Inpatient (IN) | payer OTHER ==
[2021-11-11] MEDS ORDERED: MAG HYDROX/AL HYDROX/SIMETH 30 ML UNIT-DOSE CUP PO PRN (13:54)
[2021-11-11] MEDS ORDERED: guaiFENesin 200 MG/10 ML 10 ML UNIT-DOSE CUPS PO PRN (13:54)
[2021-11-11] MEDS ORDERED: P-EPHED 60MG/TRIPROLIDI 2.5MG TABLET PO PRN (13:54)
[2021-11-11] MEDS ORDERED: MAGNESIUM CITRATE 300 ML BOTTLE PO PRN (13:54)
[2021-11-11] MEDS ORDERED: LOPERAMIDE HCL 2 MG CAPSULE PO PRN (13:54)
[2021-11-11] MEDS ORDERED: ACETAMINOPHEN 325 MG TABLET (FP) PO PRN (13:54)
[2021-11-11] MEDS ORDERED: NICOTINE POLACRILEX 2 MG GUM BUC PRN (14:02)
[2021-11-11] MEDS: GABAPENTIN 400 MG CAPSULE PO SCH ×2 (14:40→21:49)
[2021-11-11] MEDS: hydrOXYzine PAMOATE 25 MG CAPSULE (FP) PO SCH ×3 (14:41→21:50)
[2021-11-11] MEDS: NICOTINE 10 MG CARTRIDGE (INHALER) IH PRN (14:53)
[2021-11-11] MEDS: traZODone HCL 50 MG TABLET (FP) PO SCH (21:49)
[2021-11-11] MEDS: MELATONIN 5 MG TABLETS PO SCH (21:49)
[2021-11-11] MEDS: THIAMINE HCL 100 MG TABLET (FP) PO SCH (21:50)
[2021-11-11] MEDS: IBUPROFEN 400 MG TABLET (FP) PO PRN (21:51)
[2021-11-12] MEDS ORDERED: methaDONE HCL 40 MG DISPERSABLE TABLET PO SCH (06:00)
[2021-11-12] MEDS ORDERED: methaDONE HCL 10 MG TABLET ONE (06:10)
[2021-11-12] MEDS ORDERED: methaDONE HCL 40 MG DISPERSABLE TABLET ONE (06:11)
[2021-11-12] MEDS: hydrOXYzine PAMOATE 25 MG CAPSULE (FP) PO SCH ×5 (06:12→21:24)
[2021-11-12] MEDS: GABAPENTIN 400 MG CAPSULE PO SCH ×3 (06:12→21:24)
[2021-11-12] MEDS ORDERED: NICOTINE 7 MG/24 HOURS TOPICAL PATCH TD SCH (10:00)
[2021-11-12] MEDS: PRENATAL VITAMINS W/ FOLIC ACID TABLET (FP) PO SCH (10:44)
[2021-11-12] MEDS: MAGNESIUM HYDROX 2400MG/30ML ORAL SUSPENSION 30 ML CUP PO PRN (10:46)
[2021-11-12] MEDS: NICOTINE 7 MG/24 HOURS TOPICAL PATCH TD SCH (10:47)
[2021-11-12] MEDS: IBUPROFEN 400 MG TABLET (FP) PO PRN (10:49)
[2021-11-12] MEDS ORDERED: PNEUMOCOCCAL 23 VACCINE 0.5 ML VIAL IM ONE (12:00)
[2021-11-12] MEDS ORDERED: PNEUMOC 13-VAL CONJ-DIP CRM/PF 0.5 ML DISP.SYRIN IM ONE (12:00)
[2021-11-12] MEDS: METHOCARBAMOL 500 MG TABLET PO PRN (19:12)
[2021-11-12] MEDS: NICOTINE 10 MG CARTRIDGE (INHALER) IH PRN (20:23)
[2021-11-12] MEDS: THIAMINE HCL 100 MG TABLET (FP) PO SCH (21:24)
[2021-11-12] MEDS: traZODone HCL 50 MG TABLET (FP) PO SCH (21:24)
[2021-11-12] MEDS: MELATONIN 5 MG TABLETS PO SCH (21:24)
[2021-11-13] MEDS ORDERED: methaDONE HCL 40 MG DISPERSABLE TABLET ONE (04:40)
[2021-11-13] MEDS ORDERED: methaDONE HCL 10 MG TABLET ONE (04:40)
[2021-11-13] MEDS: GABAPENTIN 400 MG CAPSULE PO SCH ×3 (06:09→21:18)
[2021-11-13] MEDS: hydrOXYzine PAMOATE 25 MG CAPSULE (FP) PO SCH (06:09)
[2021-11-13] MEDS: PRENATAL VITAMINS W/ FOLIC ACID TABLET (FP) PO SCH (10:29)
[2021-11-13] MEDS: NICOTINE 10 MG CARTRIDGE (INHALER) IH PRN ×2 (10:30→14:14)
[2021-11-13] MEDS: NICOTINE 7 MG/24 HOURS TOPICAL PATCH TD SCH (10:30)
[2021-11-13] MEDS: hydrOXYzine PAMOATE 50 MG CAPSULE (FP) PO PRN (10:32)
[2021-11-13] MEDS: METHOCARBAMOL 500 MG TABLET PO PRN ×2 (10:34→21:19)
[2021-11-13] MEDS: traZODone HCL 50 MG TABLET (FP) PO SCH (21:18)
[2021-11-13] MEDS: MELATONIN 5 MG TABLETS PO SCH (21:19)
[2021-11-13] MEDS: THIAMINE HCL 100 MG TABLET (FP) PO SCH (21:19)
[2021-11-14] MEDS ORDERED: methaDONE HCL 40 MG DISPERSABLE TABLET ONE (05:35)
[2021-11-14] MEDS ORDERED: methaDONE HCL 10 MG TABLET ONE (05:35)
[2021-11-14] MEDS: GABAPENTIN 400 MG CAPSULE PO SCH ×3 (05:57→21:23)
[2021-11-14 07:15] VITALS: TEMP 97.3
[2021-11-14] MEDS: NICOTINE 10 MG CARTRIDGE (INHALER) IH PRN ×3 (09:07→19:31)
[2021-11-14] MEDS: NICOTINE 7 MG/24 HOURS TOPICAL PATCH TD SCH (10:41)
[2021-11-14] MEDS: PRENATAL VITAMINS W/ FOLIC ACID TABLET (FP) PO SCH (10:41)
[2021-11-14] MEDS: hydrOXYzine PAMOATE 50 MG CAPSULE (FP) PO PRN ×2 (10:42→21:23)
[2021-11-14] MEDS: METHOCARBAMOL 500 MG TABLET PO PRN ×2 (10:42→21:24)
[2021-11-14] MEDS: MAGNESIUM HYDROX 2400MG/30ML ORAL SUSPENSION 30 ML CUP PO PRN (20:12)
[2021-11-14] MEDS: MELATONIN 5 MG TABLETS PO SCH (21:22)
[2021-11-14] MEDS: THIAMINE HCL 100 MG TABLET (FP) PO SCH (21:23)
[2021-11-14] MEDS: traZODone HCL 50 MG TABLET (FP) PO SCH (21:23)
[2021-11-15] MEDS ORDERED: methaDONE HCL 10 MG TABLET ONE (02:53)
[2021-11-15] MEDS ORDERED: methaDONE HCL 40 MG DISPERSABLE TABLET ONE (02:53)
[2021-11-15] MEDS: GABAPENTIN 400 MG CAPSULE PO SCH ×2 (08:17→13:24)
[2021-11-15] MEDS: NICOTINE 10 MG CARTRIDGE (INHALER) IH PRN (08:17)
[2021-11-15] MEDS: PRENATAL VITAMINS W/ FOLIC ACID TABLET (FP) PO SCH (09:44)
[2021-11-15] MEDS: NICOTINE 7 MG/24 HOURS TOPICAL PATCH TD SCH (09:48)
[2021-11-15] MEDS: METHOCARBAMOL 500 MG TABLET PO PRN (09:50)
[2021-11-15] MEDS: hydrOXYzine PAMOATE 50 MG CAPSULE (FP) PO PRN (13:24)
[2021-11-15 15:08] LABS: SARS-CoV-2 NAA Not Detected (Not Detected)
[2021-11-15 15:42] VITALS: BP 136/83; PULSE 94
== END 2021-11-15 16:00 | disposition left against medical advice (07) | DRG 770 ==
LOC: YASAS 08:30 → Y5N 08:31
PROVIDERS: ADMIT Allergy & Immunology; ATTEND Allergy & Immunology
PROC: HZ42ZZZ Group Counseling for Substance Abuse Treatment, Cognitive-Behavioral (ICD-10-PCS; principal; 2021-11-11)
DX: F10.20 Alcohol dependence, uncomplicated (principal); F11.20 Opioid dependence, uncomplicated; F13.20 Sedative, hypnotic or anxiolytic dependence, uncomplicated; F14.20 Cocaine dependence, uncomplicated; F12.20 Cannabis dependence, uncomplicated; F17.210 Nicotine dependence, cigarettes, uncomplicated; F43.10 Post-traumatic stress disorder, unspecified; F90.9 Attention-deficit hyperactivity disorder, unspecified type; F19.282 Other psychoactive substance dependence with psychoactive substance-induced sleep disorder; F19.280 Other psychoactive substance dependence with psychoactive substance-induced anxiety disorder; Z56.0 Unemployment, unspecified; Z59.00 Homelessness unspecified
CPT/HCPCS: 90732; C9803-CS; G0009; U0003; U0005

== ENCOUNTER 2023-10-09 14:33 | Inpatient (IN) | payer OTHER ==
[2023-10-09 15:21] VITALS: BMI 28.1
[2023-10-09] MEDS ORDERED: BENZONATATE 200 MG CAPSULE PO PRN (15:35)
[2023-10-09] MEDS ORDERED: DICYCLOMINE HCL 10 MG CAPSULE PO PRN (15:35)
[2023-10-09] MEDS ORDERED: LOPERAMIDE HCL 2 MG CAPSULE PO PRN (15:35)
[2023-10-09] MEDS ORDERED: NALOXONE HCL (KLOXXADO) 8 MG SPRAY NS PRN (15:35)
[2023-10-09] MEDS ORDERED: guaiFENesin 600 MG TABLET.ER (FP) PO PRN (15:35)
[2023-10-09] MEDS ORDERED: BENZOCAINE/MENTHOL (CHLORASEPTIC ) LOZENGE MM PRN (15:35)
[2023-10-09] MEDS ORDERED: ACETAMINOPHEN 325 MG TABLET (FP) PO PRN (15:35)
[2023-10-09] MEDS ORDERED: ONDANSETRON *ODT* 4 MG TABLET SL PRN (15:35)
[2023-10-09] MEDS ORDERED: NALOXONE HCL 0.4 MG/ML VIAL IM PRN (15:35)
[2023-10-09] MEDS ORDERED: BISMUTH SUBSALICYLATE 524 MG/30 ML PO PRN (15:35)
[2023-10-09] MEDS: PRENATAL VITAMINS W/ FOLIC ACID TABLET (FP) PO SCH (15:45)
[2023-10-09] MEDS ORDERED: chlordiazePOXIDE HCL 25 MG CAPSULE ONE (17:52)
[2023-10-09] MEDS: chlordiazePOXIDE HCL 25 MG CAPSULE PO SCH (17:56)
[2023-10-09] MEDS: MELATONIN 5 MG TABLETS PO SCH (22:49)
[2023-10-09] MEDS: THIAMINE HCL 100 MG TABLET (FP) PO SCH (22:49)
[2023-10-10] MEDS: IBUPROFEN 600 MG TABLET (FP) PO PRN (05:23)
[2023-10-10] MEDS ORDERED: methaDONE HCL 10 MG TABLET PO SCH (08:15)
[2023-10-10] MEDS: NICOTINE POLACRILEX 2 MG GUM BUC PRN (10:42)
[2023-10-10] MEDS: NICOTINE 7 MG/24 HOURS TOPICAL PATCH TD SCH (10:43)
[2023-10-10] MEDS: POLYETHYLENE GLYCOL (HEALTHYLAX) 3350 17 GM PACKET PO PRN (10:50)
[2023-10-10 11:57] LABS: HEMATOCRIT 29.8 % (32.4-45.2); HEMOGLOBIN 9.9 GM/dL (10.7-15.3); MCH 25.3 pg (25.7-33.7); MEAN CELL VOLUME 76.7 fl (80-96); MEAN PLT VOLUME 8.2 fl (7.5-11.1); PLATELET COUNT 260 10^3/uL (134-434); RBC 3.89 M/mm3 (3.60-5.2); RDW 17.8 % (11.6-15.6); WHITE BLOOD COUNT 5.5 K/mm3 (4.0-10.0)
[2023-10-10 12:47] LABS: CHLORIDE 102 mmol/L (98-107); POTASSIUM 4.3 mmol/L (3.5-5.1); SODIUM 138 mmol/L (136-145)
[2023-10-10 12:54] LABS: ANION GAP 8 mmol/L (4-13); BLOOD UREA NITROGEN 14.4 mg/dL (7-18); CALCIUM 9.5 mg/dL (8.5-10.1); CO2 28 mmol/L (21-32); GLUCOSE,RANDOM 86 mg/dL (74-106)
[2023-10-10 12:55] LABS: ALBUMIN 3.4 g/dl (3.4-5.0)
[2023-10-10 12:57] LABS: SGOT/AST 26 U/L (15-37); SGPT/ALT 19 U/L (13-61)
[2023-10-10 12:58] LABS: CREATININE 0.8 mg/dL (0.55-1.3)
[2023-10-10 12:59] LABS: BILIRUBIN,TOTAL 0.6 mg/dL (0.2-1); TOT PROT 7.1 g/dl (6.4-8.2)
[2023-10-10 13:00] LABS: ALK PHOS 62 U/L (45-117)
[2023-10-10] MEDS: hydrOXYzine PAMOATE 25 MG CAPSULE (FP) PO PRN (14:31)
[2023-10-10] MEDS: chlordiazePOXIDE HCL 25 MG CAPSULE PO PRN (14:33)
[2023-10-10] MEDS: METHOCARBAMOL 500 MG TABLET PO PRN (20:12)
[2023-10-10] MEDS: MELATONIN 5 MG TABLETS PO SCH (22:18)
[2023-10-11] MEDS: chlordiazePOXIDE HCL 25 MG CAPSULE PO SCH (05:33)
[2023-10-11] MEDS: MAGNESIUM HYDROX 2400MG/30ML ORAL SUSPENSION 30 ML CUP PO PRN (08:20)
[2023-10-12] MEDS: chlordiazePOXIDE HCL 10 MG CAPSULE PO SCH (05:30)
[2023-10-12] MEDS: MAG HYDROX/AL HYDROX/SIMETH 30 ML UNIT-DOSE CUP PO PRN (10:17)
[2023-10-12] MEDS: MINERAL OIL ENEMA 133 ML ENEMA RC ONE (13:00)
[2023-10-12] MEDS: DOCUSATE SODIUM 100 MG CAPSULE (FP) PO SCH (13:02)
[2023-10-12] MEDS: chlordiazePOXIDE HCL 10 MG CAPSULE PO PRN (13:06)
[2023-10-12] MEDS: hydrOXYzine PAMOATE 25 MG CAPSULE (FP) PO PRN (17:25)
[2023-10-13] MEDS: IBUPROFEN 400 MG TABLET (FP) PO PRN (01:53)
[2023-10-13] MEDS: chlordiazePOXIDE HCL 10 MG CAPSULE PO SCH (05:55)
[2023-10-14] MEDS: chlordiazePOXIDE HCL 10 MG CAPSULE PO ONE (05:26)
[2023-10-14 09:30] VITALS: BP 123/82; PULSE 89; RESP 18; TEMP 97.8
[2023-10-14 14:36] LABS: IRON SERUM 18 ug/dL (50-175)
[2023-10-14 14:41] LABS: TOTAL IRON BINDING CAPACITY 424 ug/dL (250-450)
== END 2023-10-14 10:15 | disposition home or self-care (01) | DRG 773 ==
LOC: YASAS 14:33 → Y6N 16:58
PROVIDERS: ADMIT Allergy & Immunology; ATTEND Surgery
PROC: HZ2ZZZZ Detoxification Services for Substance Abuse Treatment (ICD-10-PCS; principal; 2023-10-09)
DX: F10.230 Alcohol dependence with withdrawal, uncomplicated (principal); F13.230 Sedative, hypnotic or anxiolytic dependence with withdrawal, uncomplicated; F11.20 Opioid dependence, uncomplicated; F14.20 Cocaine dependence, uncomplicated; F15.10 Other stimulant abuse, uncomplicated; F12.20 Cannabis dependence, uncomplicated; F17.210 Nicotine dependence, cigarettes, uncomplicated; F19.282 Other psychoactive substance dependence with psychoactive substance-induced sleep disorder; F19.280 Other psychoactive substance dependence with psychoactive substance-induced anxiety disorder; F19.24 Other psychoactive substance dependence with psychoactive substance-induced mood disorder; F51.05 Insomnia due to other mental disorder; D75.89 Other specified diseases of blood and blood-forming organs; Z62.810 Personal history of physical and sexual abuse in childhood; Z91.410 Personal history of adult physical and sexual abuse
CPT/HCPCS: 36415; 80053; 80305; 80307; 81025; 82140; 82607; 82728; 82746; 83540; 83550; 85027; 86780; 87635; 93005; 93010

== ENCOUNTER 2024-05-19 15:07 | Inpatient (IN) | payer OTHER ==
[2024-05-19 16:01] VITALS: BMI 29.2
[2024-05-19] MEDS ORDERED: MAG HYDROX/AL HYDROX/SIMETH 30 ML UNIT-DOSE CUP PO PRN (19:56)
[2024-05-19] MEDS ORDERED: NALOXONE (NARCAN) HCL 4 MG/0.1 ML SPRAY NS PRN (19:56)
[2024-05-19] MEDS ORDERED: ACETAMINOPHEN 325 MG TABLET (FP) PO PRN (19:56)
[2024-05-19] MEDS ORDERED: BISMUTH SUBSALICYLATE 524 MG/30 ML PO PRN (19:56)
[2024-05-19] MEDS ORDERED: BENZONATATE 200 MG CAPSULE PO PRN (19:56)
[2024-05-19] MEDS ORDERED: ONDANSETRON *ODT* 4 MG TABLET SL PRN (19:56)
[2024-05-19] MEDS ORDERED: DICYCLOMINE HCL 10 MG CAPSULE PO PRN (19:56)
[2024-05-19] MEDS ORDERED: POLYETHYLENE GLYCOL (HEALTHYLAX) 3350 17 GM PACKET PO PRN (19:56)
[2024-05-19] MEDS ORDERED: NICOTINE POLACRILEX 2 MG LOZENGE BC PRN (19:56)
[2024-05-19] MEDS ORDERED: guaiFENesin 600 MG TABLET.ER (FP) PO PRN (19:56)
[2024-05-19] MEDS ORDERED: IBUPROFEN 400 MG TABLET (FP) PO PRN (19:56)
[2024-05-19] MEDS ORDERED: BENZOCAINE/MENTHOL (CHLORASEPTIC ) LOZENGE MM PRN (19:56)
[2024-05-19] MEDS ORDERED: LOPERAMIDE HCL 2 MG CAPSULE PO PRN (19:56)
[2024-05-19] MEDS ORDERED: P-EPHED 60MG/TRIPROLIDI 2.5MG TABLET PO PRN (19:56)
[2024-05-19] MEDS: METHOCARBAMOL 500 MG TABLET PO PRN (22:59)
[2024-05-19] MEDS: THIAMINE 100 MG TABLET PO SCH (22:59)
[2024-05-19] MEDS: MELATONIN 5 MG TABLETS PO SCH (22:59)
[2024-05-19] MEDS: hydrOXYzine PAMOATE 25 MG CAPSULE (FP) PO PRN (23:00)
[2024-05-20] MEDS ORDERED: methaDONE HCL 10 MG TABLET PO ONE (08:38)
[2024-05-20] MEDS: chlordiazePOXIDE HCL 25 MG CAPSULE PO ONE (09:39)
[2024-05-20] MEDS: PRENATAL VITAMINS W/ FOLIC ACID TABLET (FP) PO SCH (09:40)
[2024-05-20] MEDS: chlordiazePOXIDE HCL 25 MG CAPSULE PO SCH (11:48)
[2024-05-20 11:56] LABS: HEMATOCRIT 33.3 % (32.4-45.2); HEMOGLOBIN 10.8 GM/dL (10.7-15.3); MCH 25.3 pg (25.7-33.7); MCHC 32.4 g/dl (32.0-36.0); MEAN CELL VOLUME 78.1 fl (80-96); PLATELET COUNT 321 10^3/uL (134-434); RBC 4.26 M/mm3 (3.60-5.2); RDW 20.8 % (11.6-15.6); WHITE BLOOD COUNT 6.1 K/mm3 (4.0-10.0)
[2024-05-20 13:21] LABS: POTASSIUM 4.6 mmol/L (3.5-5.1)
[2024-05-20 13:27] LABS: CALCIUM 9.4 mg/dL (8.5-10.1)
[2024-05-20 13:28] LABS: ALBUMIN 3.7 g/dl (3.4-5.0); BLOOD UREA NITROGEN 13.4 mg/dL (7-18)
[2024-05-20 13:31] LABS: CREATININE 0.9 mg/dL (0.55-1.3)
[2024-05-20 13:34] LABS: BILIRUBIN,TOTAL 0.6 mg/dL (0.2-1); TOT PROT 7.4 g/dl (6.4-8.2)
[2024-05-20] MEDS: DOCUSATE SODIUM 100 MG CAPSULE (FP) PO SCH (13:54)
[2024-05-20] MEDS: FERROUS SO4 325 MG TABLET (FP) PO SCH (17:28)
[2024-05-21] MEDS: MAGNESIUM HYDROX 2400MG/30ML ORAL SUSPENSION 30 ML CUP PO PRN (01:38)
[2024-05-21] MEDS ORDERED: methaDONE HCL 10 MG TABLET PO SCH (06:00)
[2024-05-21] MEDS: LACTULOSE 20 GM/30 ML UDC (FOR ORAL USE ONLY) PO PRN (10:18)
[2024-05-21] MEDS: chlordiazePOXIDE HCL 25 MG CAPSULE PO PRN (14:08)
[2024-05-21] MEDS: IBUPROFEN 600 MG TABLET (FP) PO PRN (17:40)
[2024-05-22] MEDS: chlordiazePOXIDE HCL 25 MG CAPSULE PO SCH (05:43)
[2024-05-22] MEDS: SUVOREXANT 10 MG TABLET PO PRN (22:15)
[2024-05-23] MEDS: chlordiazePOXIDE HCL 10 MG CAPSULE PO SCH (05:37)
[2024-05-23] MEDS: NICOTINE POLACRILEX 2 MG GUM BUC PRN (10:41)
[2024-05-23] MEDS: chlordiazePOXIDE HCL 10 MG CAPSULE PO PRN (13:03)
[2024-05-24] MEDS: chlordiazePOXIDE HCL 10 MG CAPSULE PO SCH (05:42)
[2024-05-25] MEDS: chlordiazePOXIDE HCL 10 MG CAPSULE PO ONE (05:38)
[2024-05-25 09:12] VITALS: BP 126/78; PULSE 84; RESP 16; TEMP 97.4
[2024-05-25] MEDS: NALOXONE (NYS OPIOID OVERDOSE PROGRAM) 4 MG/0.1 ML SPRAY NS PRN (09:36)
== END 2024-05-25 10:33 | disposition home or self-care (01) | DRG 773 ==
LOC: YASAS 15:07 → Y6N 20:51
PROVIDERS: ADMIT Allergy & Immunology; ATTEND Surgery
PROC: HZ2ZZZZ Detoxification Services for Substance Abuse Treatment (ICD-10-PCS; principal; 2024-05-19)
DX: F10.230 Alcohol dependence with withdrawal, uncomplicated (principal); F11.20 Opioid dependence, uncomplicated; F14.20 Cocaine dependence, uncomplicated; F15.20 Other stimulant dependence, uncomplicated; F12.20 Cannabis dependence, uncomplicated; F17.213 Nicotine dependence, cigarettes, with withdrawal; F19.282 Other psychoactive substance dependence with psychoactive substance-induced sleep disorder; F19.280 Other psychoactive substance dependence with psychoactive substance-induced anxiety disorder; F19.24 Other psychoactive substance dependence with psychoactive substance-induced mood disorder; F43.10 Post-traumatic stress disorder, unspecified; D75.89 Other specified diseases of blood and blood-forming organs; Z62.810 Personal history of physical and sexual abuse in childhood; Z91.410 Personal history of adult physical and sexual abuse
CPT/HCPCS: 36415; 80053; 80305; 81025; 85027; 86780